=== PATIENT | male | born 1960 ===

== ENCOUNTER → 2025-04-06 | Day surgery (SDC) | payer OTHER ==
[~2025-04-06] VITALS: Ht 177.8 cm; Wt 95.3 kg
[~2025-04-06] MED LIST: ATORVASTATIN CA10 M1 PO; Balanced Salt Solution 500 ML OPH SCH; Cefuroxime Sodium 5 MG in BALANCED SALT IRRIG SOLN NO.2 0.5 ML,SYRINGE, DISPOSABLE, 10 ... IO SCH; Midazolam Hydrochloride 2 MG/2 ML VIAL IV ONE; OFLOXACIN 0.3% 5 ML BOTTLE ONE; OFLOXACIN 0.3% 5 ML BOTTLE OPH SCH; PHENYLEPHRINE/KETOROLAC 4 ML in Balanced Salt Solution 500 ML OPH SCH; POVIDONE IODINE 5% OPHTHALMIC 30 ML BOTTLE OPH ONE; POVIDONE IODINE 5% OPHTHALMIC 30 ML BOTTLE OPH SCH; Phenylephrine Hydrochloride 2 ML BOT OPH ONE; Phenylephrine Hydrochloride 2 ML BOT OPH SCH; Proparacaine Hydrochloride 15 ML BOT OPH ONE; Proparacaine Hydrochloride 15 ML BOT OPH SCH; SODIUM CHLORIDE 0.9% 1,000 ML IV SCH; TROPICAMIDE 3 ML BOT OPH ONE; TROPICAMIDE 3 ML BOT OPH SCH; Tetracaine Hydrochloride 0.5% 4 ML BOT OPH ONE; Tetracaine Hydrochloride 0.5% 4 ML BOT OPH SCH; prednisoLONE acetate 1% OPHTHALMIC 5 ML BOT ONE; prednisoLONE acetate 1% OPHTHALMIC 5 ML BOT OPH SCH
[2025-04-06 07:20] VITALS: BP 139/77
[2025-04-06 08:56] VITALS: BP 111/65
[2025-04-06 09:11] VITALS: BP 125/71
[2025-04-06 09:26] VITALS: BP 128/73
== END | disposition home or self-care (01) ==
LOC: SDC 04-04 09:30
PROVIDERS: ATTEND Ophthalmology
DX: H25.812 Combined forms of age-related cataract, left eye (principal); F17.210 Nicotine dependence, cigarettes, uncomplicated; Z79.899 Other long term (current) drug therapy; Z98.890 Other specified postprocedural states